=== PATIENT | female | born 1995 | race Caucasian/White ===

== ENCOUNTER 2016-09-08 12:46 | Emergency (ER) | payer OTHER | END 2016-09-08 13:30 | disposition home or self-care (01) | LOC: FER 12:46 | DX: R22.31 Localized swelling, mass and lump, right upper limb (principal); T50.B95A Adverse effect of other viral vaccines, initial encounter; J45.909 Unspecified asthma, uncomplicated; E11.9 Type 2 diabetes mellitus without complications | CPT/HCPCS: 99283 ==